=== PATIENT | female | born 1935 | race African-American/Black ===

== ENCOUNTER 2016-12-18 17:32 | Emergency (ER) | payer MEDICARE, MEDICAID ==
[~2016-12-18] VITALS: Ht 177.8 cm; Wt 91.0 kg
[~2016-12-18 17:32] MED LIST: AMLO10TA4 PO; ASPI-1035 PO; BENA20TA3 PO; CELE200C PO; CLOP75TA2 PO; ESOM40CA PO; GABA-531 PO; HYDR25TA PO; OMEG-95 PO; QUET100T PO
[2016-12-18] MEDS ORDERED: IBUPROFEN 600MG TABLET PO ONE (20:00)
[2016-12-18 22:05] VITALS: BP 139/74
== END 2016-12-18 22:52 | disposition home or self-care (01) ==
LOC: ER 17:53
DX: S63.501A Unspecified sprain of right wrist, initial encounter (principal); Z88.6 Allergy status to analgesic agent; Z88.5 Allergy status to narcotic agent; Z79.1 Long term (current) use of non-steroidal anti-inflammatories (NSAID); Z79.899 Other long term (current) drug therapy; W01.0XXA Fall on same level from slipping, tripping and stumbling without subsequent striking against object, initial encounter; Y93.89 Activity, other specified; Y92.89 Other specified places as the place of occurrence of the external cause; Y99.8 Other external cause status
CPT/HCPCS: 73110; 99284

== ENCOUNTER 2020-03-19 14:40 | Emergency (ER) | payer MEDICARE, MEDICAID ==
[~2020-03-19] VITALS: Ht 180.3 cm; Wt 80.0 kg
[~2020-03-19 14:40] MED LIST changes: -ASPI-1035 PO; +ASPI-1158 PO; +BENA20TA10 PO; -BENA20TA3 PO; -CLOP75TA2 PO; +CLOP75TA4 PO
[2020-03-19 15:33] LABS: BASOPHILS % 1.5 % (0.0-2.0); EOSINOPHILS % 2.1 % (0.0-5.0); HEMATOCRIT. 35.9 % (36.0-48.0); MEAN CORPUSCULAR HEMOGLOBIN 27.4 pg (28.0-32.0); MEAN CORPUSCULAR VOLUME 81.9 fL (81.0-99.0); MEAN PLATELET VOLUME 8.6 fl (7.4-10.4); MONOCYTES % 7.3 % (2.0-8.0); NEUTROPHILS % 64.1 % (40.0-76.0); PLATELET 184 x1000/uL (130-400); RED BLOOD CELL COUNT 4.38 mill/uL (4.2-5.4); RED CELL DISTRIBUTION WIDTH 14.6 % (11.6-14.6)
[2020-03-19 15:34] LABS: CHLORIDE 110 mEq/L (98-107)
[2020-03-19 15:39] LABS: PROTHROMBIN TIME 10.9 sec (9.6-11.0)
[2020-03-19 15:41] LABS: ETHANOL BLOOD < 10 mg/dL
[2020-03-19 18:48] LABS: CLARITY URINE CLEAR (CLEAR); COLOR URINE YELLOW (YELLOW); KETONES URINE NEGATIVE (NEGATIVE); LEUKOCYTE ESTERASE URINE 1+ (NEGATIVE); NITRITE URINE NEGATIVE (NEGATIVE); OCCULT BLOOD URINE NEGATIVE (NEGATIVE); PH URINE 5.5 (4.5-8.0); PROTEIN URINE NEGATIVE (NEGATIVE); SPECIFIC GRAVITY URINE 1.014 (1.005-1.030); UROBILINOGEN URINE 0.2 E.U./dL (0.2-1.0)
[2020-03-19 18:53] LABS: *AMPHETAMINES SCREEN URINE NEGATIVE (NEGATIVE)
[2020-03-19 18:54] LABS: *BARBITURATES SCREEN URINE NEGATIVE (NEGATIVE); *BENZODIAZEPINES SCREEN URINE NEGATIVE (NEGATIVE); *COCAINE SCREEN URINE NEGATIVE (NEGATIVE); METHADONE URINE SCREEN NEGATIVE (NEGATIVE); OPIATES URINE SCREEN NEGATIVE (NEGATIVE); PHENCYCLIDINE URINE SCREEN NEGATIVE (NEGATIVE)
[2020-03-19 18:56] LABS: CANNABINOID URINE SCREEN NEGATIVE (NEGATIVE)
[2020-03-19] MEDS ORDERED: CEFTRIAXONE 1 G PREMIX 50 ML IV ONE (19:15)
[2020-03-19 19:38] VITALS: BP 135/60
== END 2020-03-19 23:20 | disposition left against medical advice (07) ==
LOC: ER 14:40 → CANBEDREQ 03-20 00:12
DX: N39.0 Urinary tract infection, site not specified (principal); N17.9 Acute kidney failure, unspecified; I21.4 Non-ST elevation (NSTEMI) myocardial infarction; M19.90 Unspecified osteoarthritis, unspecified site; I10 Essential (primary) hypertension; Z88.5 Allergy status to narcotic agent; Z88.6 Allergy status to analgesic agent; Z91.81 History of falling
CPT/HCPCS: 36415; 70450; 71045; 80053; 80305; 80320; 81003; 83605; 83690; 83880; 84484; 85025; 85610; 87086; 96365; 96366; 99285; J0696; G0480